=== PATIENT | female | born 1990 | race Hispanic/Latino ===

== ENCOUNTER 2019-02-26 11:00 | Inpatient (IN) | payer MEDICAID, OTHER ==
[~2019-02-26] VITALS: Ht 152.4 cm; Wt 90.7 kg
[2019-02-26] MEDS ORDERED: LACTATED RINGERS 1000ML 1,000 ML IV PRN (11:36)
[2019-02-26] MEDS ORDERED: OXYTOCIN 10 USP UNITS/ML 20 UNIT in LACTATED RINGERS 1000ML 1,000 ML IV SCH (11:45)
[2019-02-26 11:46] LABS: APPEARANCE,URINE Clear (CLEAR); BILIRUBIN,URINE Negative (NEGATIVE); COLOR,URINE Yellow (YELLOW); GLUCOSE, URINE (UA) Negative (NEGATIVE); KETONES,URINE Negative (NEGATIVE); LEUKOCYTE ESTERASE ,URINE Trace (NEGATIVE); NITRATE,URINE Negative (NEGATIVE); OCCULT BLOOD,URINE Negative (NEGATIVE); PROTEIN,URINE Trace mg/dL (NEGATIVE)
[2019-02-26 11:58] LABS: BACTERIA,URINE Rare /HPF (None Seen); RBC,URINE None Seen /HPF (0-1); WBC,URINE 0-1 /HPF (0-1)
[2019-02-26] MEDS ORDERED: OXYTOCIN-LR 20 UNITS/1000 ML 1,000 ML IV ONE (12:05)
[2019-02-26 12:08] LABS: HEMATOCRIT 38.1 % (36-48); MEAN CORPUSCULAR HEMOGLOBIN 30.2 pg (27.0-33.0); MEAN CORPUSCULAR HGB CONC 33.8 g/dL (32.0-36.0); MEAN CORPUSCULAR VOLUME 89.5 fL (79-99); PLATELET COUNT (AUTO) 258 K/uL (130-400); RED BLOOD CELL COUNT(AUTO) 4.26 MIL/uL (4.00-5.50); RED CELL DISTRIBUTION WIDTH 14.5 % (11.0-15.5); WHITE BLOOD COUNT (AUTO) 8.4 K/uL (4.8-10.8)
[2019-02-26] MEDS ORDERED: MEPERIDINE-PF 50 MG/ML SYG ONE (12:35)
[2019-02-26] MEDS ORDERED: LIDOCAINE HCL 1% 20 ML VIAL ONE (12:37)
[2019-02-26] MEDS ORDERED: METHYLERGONOVINE MALEATE 0.2 MG/1 ML ML ONE (12:45)
[2019-02-26] MEDS ORDERED: MEPERIDINE-PF 50 MG/ML SYG IVP SCH (12:45)
[2019-02-26] MEDS ORDERED: PROMETHAZINE HCL 25 MG/ML 1ML AMPULE IM SCH (12:45)
[2019-02-26] MEDS ORDERED: BENZOCAINE/LANOLIN/ALOE VERA 60 ML AEROSOL TP PRN (13:00)
[2019-02-26] MEDS ORDERED: ACETAMINOPHEN 325 MG TAB PO PRN (13:00)
[2019-02-26] MEDS ORDERED: METHYLERGONOVINE MALEATE 0.2 MG/1 ML ML IM SCH (13:00)
[2019-02-26] MEDS ORDERED: LANOLIN 30GM OINTMENT TP PRN (13:00)
[2019-02-26] MEDS ORDERED: MISOPROSTOL 200 MCG TABLET ONE (13:00)
[2019-02-26] MEDS ORDERED: WITCH HAZEL 1 PAD TP PRN (13:00)
[2019-02-26] MEDS ORDERED: OXYTOCIN-LR 20 UNITS/1000 ML 1,000 ML IV SCH (13:00)
[2019-02-26] MEDS ORDERED: DIPH,PERTUSS(ACELL),TET VAC/PF 0.5 ML VIAL IM PRN (13:00)
[2019-02-26] MEDS ORDERED: MISOPROSTOL 200 MCG TABLET PR SCH (13:00)
[2019-02-26] MEDS ORDERED: MEASLES/MUMPS/RUBELLA VACCINE, LIVE 0.5 ML/VIAL SQ PRN (13:00)
[2019-02-26] MEDS ORDERED: OXYTOCIN 10 USP UNITS/ML ONE (13:22)
--- NOTE | 2019-02-26 14:45 | NUR ---
REPORT RECEIVED FROM Su MABRY RN AND PATIENT CARE TRANSFERED AT THIS TIME. PATIENT ADMITTED WITH CRESPO CATHETER DRAINING CLEAR YELLOW URINE. VAGINAL BLEEDING IS SMALL ON ASSESSMENT AND IV INFUSING AT 125CC/HR OF LR WITH 40 UNITS PITOCIN PER REPORT. PATIENT ORIENTED TO ROOM AND CALL LIGHT LEFT AT BEDSIDE WITHIN REACH.
[2019-02-26 14:52] VITALS: BP 141/85
[2019-02-26] MEDS ORDERED: PNV71COM3 PO (16:07)
[2019-02-26] MEDS: ACETAMINOPHEN-CODEINE 300/30MG TAB PO PRN ×2 (16:23→21:40)
--- NOTE | 2019-02-26 18:15 | NUR ---
CRESPO CATHETER REMOVED BY Pedro GONZALES/Derrick THOMAS AND DISCARDED 350CC OR CLEAR YELLOW URINE. PATIENT HAS REMAINED STABLE AND NO SMALL LOCHIA NOTED AT THIS TIME. PERICARE GIVEN TO PATIENT AT THIS TIME.
--- NOTE | 2019-02-26 18:45 | NUR ---
PATIENT REQUESTING TDAP AND CONSENT OBTAINED FOR TDAP.
[2019-02-26 18:53] VITALS: BP 112/69
--- NOTE | 2019-02-26 19:15 | NUR ---
REPORT GIVEN TO ROSALINA WHEAT AND PATIENT INSTRUCTED ON NEED TO CALL FOR ASSISTANCE WHEN FIRST NEEDING TO VOID AND VERBALIZED UNDERSTANDING. PATIENT STABLE AND VISITING WITH FAMILY AT THIS TIME.
[2019-02-26] MEDS: DOCUSATE SODIUM 100 MG CAP PO SCH (19:59)
[2019-02-26 20:00] VITALS: BP 118/73
[2019-02-26] MEDS: IBUPROFEN 600 MG TABLET PO PRN (20:00)
[2019-02-26 23:15] VITALS: BP 122/52
[2019-02-27 03:33] VITALS: BP 102/58
[2019-02-27] MEDS: IBUPROFEN 600 MG TABLET PO PRN ×2 (03:33→11:52)
[2019-02-27 06:57] LABS: HEMATOCRIT 31.2 % (36-48); MEAN CORPUSCULAR HEMOGLOBIN 30.4 pg (27.0-33.0); MEAN CORPUSCULAR HGB CONC 33.5 g/dL (32.0-36.0); MEAN CORPUSCULAR VOLUME 90.9 fL (79-99); PLATELET COUNT (AUTO) 214 K/uL (130-400); RED BLOOD CELL COUNT(AUTO) 3.43 MIL/uL (4.00-5.50); RED CELL DISTRIBUTION WIDTH 14.1 % (11.0-15.5); WHITE BLOOD COUNT (AUTO) 9.4 K/uL (4.8-10.8)
[2019-02-27 07:20] VITALS: BP 123/60
--- NOTE | 2019-02-27 07:20 | NUR ---
PATIENT ASSESSED AND HAS BEEN SUCCESSFULLY. PATIENT C/O MILD CRAMPING BUT NO SEVERE PAIN. HAS SALINE LOCK DUE TO HAVING BLEEDING BUT HAS BEEN STABLE SINCE TRANSFER TO . HAS 2+ EDEMA TO LOWER EXTREMITIES BUT DOING BETTER THIS A.M. BONDING WELL WITH BABY.
[2019-02-27] MEDS: DOCUSATE SODIUM 100 MG CAP PO SCH (08:12)
--- NOTE | 2019-02-27 10:30 | NUR ---
PATIENT WAS SEEN BY DR. GARCIA AND DISCHARGE ORDER GIVEN WITH SCRIPT FOR MOTRIN AND COLACE.
[2019-02-27 11:54] VITALS: BP 132/77
--- NOTE | 2019-02-27 13:10 | NUR ---
PATIENT WAS TAKEN VIA W/C CARRYING BABY IN ARMS AND WAS DISCHARGED TO SPOUSE IN STABLE CONDITION. BOTH PARENTS FIX CARSEAT AND PLACED BABY IN CARSEAT FOR TRAVEL TO HOME. PATIENT STABLE AND DENIES PAIN.
[2019-03-01 04:08] LABS: HEPATITIS Bs ANTIGEN SCREEN P Negative (Negative)
== END 2019-02-27 13:05 | disposition home or self-care (01) | DRG 807 ==
LOC: EDH 11:00 → OBSVTOIN 11:01 → LDH 11:01 → WSH 14:45
PROC: 10E0XZZ Delivery of Products of Conception, External Approach (ICD-10-PCS; principal; 2019-02-26)
PROC: 0KQM0ZZ Repair Perineum Muscle, Open Approach (ICD-10-PCS; 2019-02-26)
PROC: 10907ZC Drainage of Amniotic Fluid, Therapeutic from Products of Conception, Via Natural or Artificial Opening (ICD-10-PCS; 2019-02-26)
PROC: 3E0234Z Introduction of Serum, Toxoid and Vaccine into Muscle, Percutaneous Approach (ICD-10-PCS; 2019-02-26)
PROC: 3E0134Z Introduction of Serum, Toxoid and Vaccine into Subcutaneous Tissue, Percutaneous Approach (ICD-10-PCS; 2019-02-26)
DX: O69.81X0 Labor and delivery complicated by cord around neck, without compression, not applicable or unspecified (principal); Z37.0 Single live birth; O70.1 Second degree perineal laceration during delivery; Z3A.39 39 weeks gestation of pregnancy; Z23 Encounter for immunization
CPT/HCPCS: 36415; 81001; 85027; 86592; 86850; 86900; 86901; 87340; 90715; A4351; G0378; J2175; J2210; J2590; J7120

== ENCOUNTER 2020-07-13 07:33 | Inpatient (IN) | payer MEDICAID, OTHER ==
[~2020-07-13] VITALS: Ht 152.4 cm; Wt 84.4 kg
[~2020-07-13 07:33] MED LIST: PNV71COM3 PO
[2020-07-13] MEDS ORDERED: AMPICILLIN 2GM+NS 100ML 100 ML IV ONE (08:08)
[2020-07-13 08:15] LABS: HEMATOCRIT 38.5 % (36-48); MEAN CORPUSCULAR HEMOGLOBIN 27.1 pg (27.0-33.0); MEAN CORPUSCULAR HGB CONC 32.5 g/dL (32.0-36.0); MEAN CORPUSCULAR VOLUME 83.3 fL (79-99); RED BLOOD CELL COUNT(AUTO) 4.62 MIL/uL (4.00-5.50); RED CELL DISTRIBUTION WIDTH 14.3 % (11.0-15.5); WHITE BLOOD COUNT (AUTO) 9.4 K/uL (4.8-10.8)
[2020-07-13] MEDS ORDERED: LACTATED RINGERS 1000ML 1,000 ML IV PRN (08:15)
[2020-07-13] MEDS ORDERED: MISOPROSTOL 200 MCG TABLET ONE (08:21)
[2020-07-13] MEDS ORDERED: AMPICILLIN 2GM+NS 100ML 100 ML IV SCH (08:30)
[2020-07-13 08:54] LABS: APPEARANCE,URINE Clear (CLEAR); BILIRUBIN,URINE Negative (NEGATIVE); COLOR,URINE Yellow (YELLOW); GLUCOSE, URINE (UA) Negative (NEGATIVE); KETONES,URINE Negative (NEGATIVE); LEUKOCYTE ESTERASE ,URINE Negative (NEGATIVE); NITRATE,URINE Negative (NEGATIVE); OCCULT BLOOD,URINE Negative (NEGATIVE); PROTEIN,URINE POS 1+ mg/dL (NEGATIVE); UROBILINOGEN,URINE 0.2 mg/dL (0.2-1.0)
[2020-07-13] MEDS: OXYTOCIN-LR 20 UNITS/1000 ML 1,000 ML IV SCH ×2 (09:00→09:35)
[2020-07-13] MEDS ORDERED: MEPERIDINE-PF 50 MG/ML SYG ONE (09:02)
[2020-07-13 09:04] LABS: BACTERIA,URINE Rare /HPF (None Seen); RBC,URINE 0-1 /HPF (0-1); SQUAMOUS EPITHELIAL CELL,UR Rare /HPF (0-2); WBC,URINE 0-1 /HPF (0-1)
[2020-07-13] MEDS ORDERED: LIDOCAINE HCL 2% 20ML ONE (09:07)
[2020-07-13] MEDS ORDERED: OXYTOCIN-LR 20 UNITS/1000 ML 1,000 ML IV SCH (10:00)
[2020-07-13] MEDS ORDERED: DIPH,PERTUSS(ACELL),TET VAC/PF 0.5 ML VIAL IM PRN (10:00)
[2020-07-13] MEDS ORDERED: LANOLIN 30GM OINTMENT TP PRN (10:00)
[2020-07-13] MEDS ORDERED: MEASLES/MUMPS/RUBELLA VACCINE, LIVE 0.5 ML/VIAL SQ PRN (10:00)
[2020-07-13] MEDS ORDERED: ACETAMINOPHEN 325 MG TAB PO PRN (10:00)
[2020-07-13] MEDS: IBUPROFEN 600 MG TABLET PO PRN ×2 (10:30→18:20)
[2020-07-13] MEDS: BENZOCAINE/LANOLIN/ALOE VERA 60 ML AEROSOL TP PRN (10:31)
[2020-07-13] MEDS: WITCH HAZEL 1 PAD TP PRN (10:31)
[2020-07-13] MEDS ORDERED: AMPICILLIN 1GM+NS 50ML 50 ML IV SCH (12:30)
[2020-07-13 12:31] VITALS: BP 110/58
[2020-07-13 13:18] LABS: AMPHET/METH SCREEN,URINE NEGATIVE (NEGATIVE); BARBITURATE SCREEN, URINE NEGATIVE (NEGATIVE); BENZODIAZEPINES SCREEN,URINE NEGATIVE (NEGATIVE); CANNABINOID SCREEN,URINE NEGATIVE (NEGATIVE); COCAINE SCREEN,URINE NEGATIVE (NEGATIVE); OPIATE SCREEN,URINE NEGATIVE (NEGATIVE); PHENCYCLIDINE SCREEN,URINE NEGATIVE (NEGATIVE)
[2020-07-13] MEDS: ACETAMINOPHEN-CODEINE 300/30MG TAB PO PRN ×2 (14:05→23:15)
[2020-07-13 16:00] VITALS: BP 118/63
[2020-07-13 19:50] VITALS: BP 107/60
[2020-07-13] MEDS: DOCUSATE SODIUM 100 MG CAP PO SCH (21:05)
[2020-07-13 23:07] VITALS: BP 120/77
[2020-07-14] MEDS: WITCH HAZEL 1 PAD TP PRN (01:14)
[2020-07-14] MEDS: BENZOCAINE/LANOLIN/ALOE VERA 60 ML AEROSOL TP PRN (01:14)
[2020-07-14 03:04] VITALS: BP 116/70
[2020-07-14] MEDS ORDERED: FLU VACC QS2020-21(6MOS UP)/PF 60 MCG/0.5 ML ML IM ONE ×2 (03:30→06:27)
[2020-07-14 07:28] VITALS: BP 119/68
[2020-07-14] MEDS: DOCUSATE SODIUM 100 MG CAP PO SCH ×2 (09:07→21:08)
[2020-07-14] MEDS: ACETAMINOPHEN-CODEINE 300/30MG TAB PO PRN (09:08)
[2020-07-14 11:08] VITALS: BP 119/70
[2020-07-14 12:09] LABS: HEPATITIS Bs ANTIGEN SCREEN P Negative (Negative)
[2020-07-14 14:27] LABS: RAPID PLASMA REAGIN NONREACTIVE (NONREACTIVE)
[2020-07-14] MEDS ORDERED: MEASLES/MUMPS/RUBELLA VACCINE, LIVE 0.5 ML/VIAL SQ ONE (15:58)
[2020-07-14 16:17] VITALS: BP 128/70
[2020-07-14] MEDS: IBUPROFEN 600 MG TABLET PO PRN (18:18)
[2020-07-14 19:34] VITALS: BP 102/55
[2020-07-14 23:41] VITALS: BP 124/60
[2020-07-15] MEDS: IBUPROFEN 600 MG TABLET PO PRN ×2 (03:31→09:09)
[2020-07-15 03:58] VITALS: BP 107/60
[2020-07-15 07:12] VITALS: BP 114/56
--- NOTE | 2020-07-15 08:30 | NUR ---
Dr. Burdick rounded and discharged patient to home. Patient had stayed due to baby staying and is strictly . Patient to be discharged today. Patient has remained afebrile and vital signs within normal limits.
[2020-07-15] MEDS: DOCUSATE SODIUM 100 MG CAP PO SCH (09:09)
[2020-07-15] MEDS: ACETAMINOPHEN-CODEINE 300/30MG TAB PO PRN (09:11)
[2020-07-15 11:19] VITALS: BP 113/60
--- NOTE | 2020-07-15 11:40 | NUR ---
Discharge instructions given and patient verbalized understanding instructions given.
== END 2020-07-15 12:15 | disposition home or self-care (01) | DRG 807 ==
LOC: EDH 07:33 → LDH 07:34 → OBSVTOIN 07:35 → WSH 18:25
PROVIDERS: ADMIT Specialist; ATTEND Specialist
PROC: 10E0XZZ Delivery of Products of Conception, External Approach (ICD-10-PCS; principal; 2020-07-13)
PROC: 0KQM0ZZ Repair Perineum Muscle, Open Approach (ICD-10-PCS; 2020-07-13)
PROC: 3E0234Z Introduction of Serum, Toxoid and Vaccine into Muscle, Percutaneous Approach (ICD-10-PCS; 2020-07-13)
PROC: 3E0134Z Introduction of Serum, Toxoid and Vaccine into Subcutaneous Tissue, Percutaneous Approach (ICD-10-PCS; 2020-07-13)
PROC: 3E02340 Introduction of Influenza Vaccine into Muscle, Percutaneous Approach (ICD-10-PCS; 2020-07-13)
PROC: 3E0P7VZ Introduction of Hormone into Female Reproductive, Via Natural or Artificial Opening (ICD-10-PCS; 2020-07-13)
DX: O77.0 Labor and delivery complicated by meconium in amniotic fluid (principal); Z37.0 Single live birth; O70.1 Second degree perineal laceration during delivery; Z23 Encounter for immunization; Z3A.39 39 weeks gestation of pregnancy
CPT/HCPCS: 36415; 80305; 81001; 85027; 86592; 86701; 86850; 86900; 86901; 87340; 87390; 90707; 90715; A4351; A4606; G0378; J0290; J2175; J2590; J3490; J7120; Q2035